=== PATIENT | male | born 2000 | race Caucasian/White ===

== ENCOUNTER → 2022-11-15 14:48 | Outpatient (CLI) | payer OTHER, SELFPAY ==
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
== END ==
PROVIDERS: PCP Nurse Practitioner Family; Visit Provider Nurse Practitioner Family
DX: I26.99 Other pulmonary embolism without acute cor pulmonale (principal)
CPT/HCPCS: 71275; Q9967